=== PATIENT | female | born 2000 | race Caucasian/White ===

== ENCOUNTER 2019-02-16 09:15 | Emergency (ER) | payer MEDICAID ==
[~2019-02-16] VITALS: Ht 160 cm; Wt 66.8 kg
[~2019-02-16 09:15] MED LIST: LEVO25TA2 PO
[2019-02-16] MEDS ORDERED: ondansetron/PF 4mg/2ml inj IV ONE (11:15)
[2019-02-16] MEDS ORDERED: ketorolac tromethamine 15mg/ml inj. IV ONE (11:15)
[2019-02-16 11:37] LABS: BASOPHILS % (AUTO) 1.1 % (0-1); EOSINOPHILS # (AUTO) 0.1 X10'3 (0-0.9); EOSINOPHILS % (AUTO) 2.1 % (0-6); HEMATOCRIT 39.9 % (35.0-45.0); HEMOGLOBIN 13.8 g/dl (12.0-16.0); LYMPHOCYTES # (AUTO) 0.9 X10'3 (1.1-4.8); LYMPHOCYTES % (AUTO) 25.6 % (21-51); MEAN CORPUSCULAR HEMOGLOBIN 30.2 PG (27.0-31.0); MEAN CORPUSCULAR HGB CONC 34.5 g/dL (33.0-36.5); MEAN CORPUSCULAR VOLUME 87.4 FL (78-98); MEAN PLATELET VOLUME 7.9 FL (7.4-10.4); MONOCYTES # (AUTO) 0.5 X10'3 (0-0.9); MONOCYTES % (AUTO) 13.6 % (2-12); NEUTROPHILS # (AUTO) 2.1 X10'3 (1.8-7.7); NEUTROPHILS % (AUTO) 57.6 % (42-75); PLATELET COUNT 241 X10'3 (140-440); RED BLOOD COUNT 4.56 X10'6 (4.20-5.60); RED CELL DISTRIBUTION WIDTH 12.5 % (11.5-14.5); WHITE BLOOD COUNT 3.6 X10'3 (4.5-11.0)
[2019-02-16 11:38] LABS: URINE HCG NEGATIVE (NEG)
[2019-02-16 11:42] LABS: CLARITY,URINE SLIGHTLY CLOUDY (Clear); COLOR,URINE YELLOW (Yellow); GLUCOSE, URINE NEGATIVE (Neg); KETONES,URINE NEGATIVE (Neg); LEUKOCYTE ESTERASE ,URINE SMALL (Neg); NITRITES, URINE NEGATIVE (Neg); OCCULT BLOOD,URINE NEGATIVE (Neg); PROTEIN,URINE NEGATIVE (Neg); UROBILINOGEN,URINE 0.2 E.U/dL (0.2-1.0)
[2019-02-16 11:43] LABS: URINE AMPHETAMINE SCREEN NEGATIVE (Neg); URINE BARBITUATE SCREEN NEGATIVE (Neg); URINE BENZODIAZEPINES SCREEN NEGATIVE (Neg); URINE CANNABINOID SCREEN NEGATIVE (Neg); URINE COCAINE SCREEN NEGATIVE (Neg); URINE METHADONE SCREEN NEGATIVE (Neg); URINE OPIATE SCREEN NEGATIVE (Neg); URINE PHENCYCLIDINE SCREEN NEGATIVE (Neg)
[2019-02-16 11:47] LABS: UA COLLECTION TYPE CLN CATCH MIDSTREAM
[2019-02-16 11:48] LABS: BACTERIA,URINE 1+ /HPF (Neg); MUCUS STRANDS MODERATE /LPF (Neg); RBC,URINE NONE SEEN /HPF (0-2); SQUAMOUS EPITHELIAL CELL,UR MODERATE /LPF (FEW); WBC,URINE 30-50 /HPF (0-4)
[2019-02-16 11:50] LABS: ALANINE AMINOTRANSFERASE 23 U/L (12-78); ALBUMIN 4.2 G/DL (3.4-5.0); ALBUMIN/GLOBULIN RATIO 1.1 (1.1-1.5); ALKALINE PHOSPHATASE 76 IU/L (20-180); ANION GAP 10 (8-16); ASPARTATE AMINO TRANSFERASE 23 U/L (10-37); BILIRUBIN,TOTAL 0.3 MG/DL (0.1-1.0); BLOOD UREA NITROGEN 7 MG/DL (7-18); BUN/CREATININE RATIO 9.3 (6.6-38.0); CALCIUM 8.8 MG/DL (8.5-10.1); CHLORIDE 107 MMOL/L (99-107); CREATININE 0.75 MG/DL (0.40-0.90); GLUCOSE 89 MG/DL (70-104); LIPASE 99 U/L (73-393); POTASSIUM 3.7 MMOL/L (3.5-5.1); SODIUM 144 MMOL/L (135-145); TOTAL CARBON DIOXIDE 27.4 MMOL/L (24-32); eGFR > 90 ML/MIN
[2019-02-16] MEDS ORDERED: NITR100C6 PO (11:57)
[2019-02-16 12:15] VITALS: BP 102/64
== END 2019-02-16 12:21 | disposition home or self-care (01) ==
LOC: ER 09:15
DX: N39.0 Urinary tract infection, site not specified (principal); E03.9 Hypothyroidism, unspecified; R19.7 Diarrhea, unspecified; Z79.899 Other long term (current) drug therapy
CPT/HCPCS: 36415; 80053; 80305; 81001; 81025; 83690; 85025; 85610; 87088; 96374; 96375; 99283; J1885; J2405

== ENCOUNTER 2019-09-29 15:30 | Emergency (ER) | payer MEDICAID ==
[~2019-09-29] VITALS: Ht 160 cm; Wt 70.0 kg
[~2019-09-29 15:30] MED LIST changes: +NITR100C6 PO
[2019-09-29 15:38] VITALS: BP 130/75
[2019-09-29] MEDS ORDERED: orphenadrine citrate 60mg/2ml inj. IM ONE (16:15)
[2019-09-29] MEDS ORDERED: ketorolac tromethamine 15mg/ml inj. IM ONE (16:15)
[2019-09-29] MEDS ORDERED: IBUP-1985 PO (17:35)
[2019-09-29] MEDS ORDERED: METH-360 PO (17:35)
== END 2019-09-29 18:01 | disposition home or self-care (01) ==
LOC: ER 15:31
DX: S30.0XXA Contusion of lower back and pelvis, initial encounter (principal); E03.9 Hypothyroidism, unspecified; Z79.899 Other long term (current) drug therapy; W18.39XA Other fall on same level, initial encounter; Y93.89 Activity, other specified; Y92.89 Other specified places as the place of occurrence of the external cause; Y99.8 Other external cause status
CPT/HCPCS: 72170; 96372; 99284; J1885; J2360

== ENCOUNTER 2024-11-21 09:20 | Emergency (ER) | payer MEDICAID ==
[~2024-11-21] VITALS: Ht 160 cm; Wt 83.9 kg
[~2024-11-21 09:20] MED LIST changes: +IBUP-1985 PO; +METH-360 PO
--- NOTE | 2024-11-21 09:37 | Physician Documentation ---
History of Present Illness Stated Complaint: LOWER ABDOMINAL PAIN OK to notify your PCP?: Yes Primary Medical Doctor: KAMALA Source: patient Mode of Arrival: POV Exam Limitations: no limitations HPI 23-year-old female presents with right lower quadrant pain for the past week and a half. She states that the pain has been getting progressively worse and it feels like a sharp pain constantly. She says if she moves certain directions then it feels like a sharp stabbing sensation. She also has had some nausea and diarrhea. She still has her appendix. She denies any fevers. She has no vaginal bleeding or cramping, she did have Nexplanon put in in July of this year, menstrual cycle was in September of this year. She has a history of ovarian cyst but has not never experienced pain from them before. MD History: Comes in for evaluation of abdominal pain. She reports it has been going on for a week and a half or two weeks, relatively constant although it waxes and wanes. 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 She has felt slightly nauseated and has had loose stools once per day, no vomiting, fever, dysuria, or hematuria noted. Patient gave about 4-1/2 months ago and is nursing, has never had these symptoms before . Medication Reconciliation Allergies: Coded Allergies: No Known Allergies (Unverified , 07/29/16) Scheduled Ibuprofen (Ibuprofen), 1 TAB PO Q8H Methocarbamol (Robaxin-750), 1 TAB PO Q12H Nitrofurantoin Monohyd/M-Cryst (Macrobid 100 mg Capsule), 1 CAP PO Q12H Pantoprazole Sodium (PROTONIX tablet), 1 TAB PO DAILY levothyroxine sodium* (Synthroid*), 1 TAB PO DAILY, (Reported) Past Medical History Past Medical History: *GI/HEPATOBILIARY* (Irritable bowel syndrome), Hypothyroidism Past Surgical History: noncontributory Smoking Status: Current every day smoker Alcohol Use: None Drug Use: none Lives with: Family Lives In: Home Occupation: student Review of Systems All Other Systems at this time: Reviewed and Negative Physical Exam Vital Signs: RN Vital Signs have been reviewed: Yes Pulse Oximetry Reflects: adequate oxygenation Physical Exam General: Pt is awake, alert, oriented x4 in no acute distress and well appeari ng. Head: Normocephalic and atraumatic. Eyes: Conjunctiva normal. ENT: Mucous membranes moist. Neck: Supple. Chest: Clear to auscultation bilaterally, without rales, rhonchi, or wheezes. There is no accessory muscle use or retractions. Cardiac: Regular rate and rhythm without murmurs, gallops or rubs. Palpation of the chest wall is normal. Abd: Soft, nondistended, tender predominantly over the RUQ, less so over RMQ/RLQ, with normoactive bowel sounds. No guarding or rebound found. Extremities: Within normal limits without cyanosis, clubbing, or edema. Skin: Vergas, warm and dry with no significant rash appreciated. Neuro: Cranial nerves II-XII grossly intact. The gait is normal. Medical Decision Making Additional Comments Patient presenting with mid quadrant right abdominal pain going on for the last several days. As the tenderness seems to be predominantly towards the right upper quadrant it was felt that she might have biliary obstruction or biliary colic. Because the tenderness also was in the right lower quadrant and after noting normal bilirubin and liver function tests, I elected to perform a CT scan to also rule out appendicitis. No acute pathology was found. Patient's symptoms are likely related either to uncomplicated biliary colic or a gastroesophageal etiology; she has been advised to eat small low-fat meals as well as to start taking a proton pump inhibitor. She should have close follow- up with her PMD who can continue the outpatient workup, but understands that she should return immediately for any worsening of her symptoms or other concerns. Departure Time of Disposition: 14:53 Disposition: 01 HOME / SELF CARE / HOMELESS Impression: Primary Impression: Nonspecific abdominal pain Condition: Stable Discharge Instructions: Abdominal Pain (Nonspecific) Additional Instructions: No specific cause for your pain was found today on your screening tests in the emergency department. You are being started on a new medication for your stomach, however you will need to follow up with your regular provider for further outpatient workup. Please take small, lower fat meals in case you may have some small gallstones causing pain. Take the medication you are prescribed, know that you should return immediately to the emergency department should she develop increasing pain, fever, passing blood, or any other concerns. Referrals: NO PRIMARY CARE PROVIDER (PCP) Prescriptions Pantoprazole Sodium (PROTONIX tablet) 40 Mg Tablet. 1 TAB PO DAILY for 30 Days, #30 TAB 0 Refills Prov: FAIZAN GARNICA MD 11/21/24 Education Educated: Patient, Family Educated regarding: diagnosis, treatment Additional Comment Medical Screen Exam This patient recieved a medical screening examination. After reviewing the individual's medical complaints with presenting symptoms and performing an appropriate physical examination, it was determined that no immediate life- threatening emergency medical condition is present. This individual is also not a women having contractions. Signature Scribe Signature: Attestation: LAMAR WOODWARDP Nov 21, 2024 09:37 FAIZAN GARNICA MD Nov 21, 2024 12:03
[2024-11-21 10:41] LABS: MEAN PLATELET VOLUME 7.8 FL (7.4-10.4); RED CELL DISTRIBUTION WIDTH 13.5 % (11.5-14.5)
[2024-11-21 10:55] LABS: CREATININE 0.64 MG/DL (0.40-0.90); TOTAL CARBON DIOXIDE 27.6 MMOL/L (24-32); eCRCL 111 ML/MIN; eGFR > 90 ML/MIN
[2024-11-21 11:11] LABS: LEUKOCYTE ESTERASE ,URINE NEGATIVE (Neg); NITRITES, URINE NEGATIVE (Neg); OCCULT BLOOD,URINE NEGATIVE (Neg)
[2024-11-21 11:12] LABS: URINE HCG NEGATIVE (NEG)
[2024-11-21 11:14] LABS: UA COLLECTION TYPE NON-SPECIFIED
[2024-11-21] MEDS ORDERED: iohexol 300mg/ml 100ml inj. ONE (12:37)
--- NOTE | 2024-11-21 13:52 | RADIOLOGY REPORT ---
Exam: CT CT ABDOMEN PELVIS W/ IV CONTRAST History: r/o appy Comparison Study: None Technique: Multidetector spiral CT of the abdomen was performed from lung bases to pubic symphysis. A xial imaging was performed with intravenous contrast following the uneventful administration of 100 m l Omnipaque 300. Coronal and sagittal multiplanar reformats were obtained from the axial data set by the technologist. Radiation Dose : 1. Abdomen/Pelvis: CTDIvol 21.5 mGy, DLP 1131.96 mGy*cm. Findings: Lung Bases: Lung bases are clear. Visualized portions of the heart and pericardium are unremarkable. Liver: The liver is normal in size. No focal lesions. Gallbladder and Biliary Tree: The gallbladder is unremarkable. No intrahepatic or extrahepatic bilia ry ductal dilatation. Spleen: Unremarkable Pancreas: The pancreas enhances normally and there are no focal lesions. The main pancreatic duct is not dilated Adrenal Glands: Unremarkable Kidneys: Kidneys enhance symmetrically. No calculi or hydronephrosis. GI tract: The stomach is grossly normal in appearance. No evidence of small bowel wall thickening or abnormal dilatation to suggest bowel obstruction. The colon is unremarkable. The appendix is visualiz ed and is normal. Peritoneum/mesentery/retroperitoneum. No evidence of free intraperitoneal air. No ascites. No evidenc e of suspicious lymphadenopathy. Abdominal Wall: Unremarkable. Vasculature: Abdominal aorta and main branches are unremarkable. Normal vascular enhancement. Urinary Bladder: Grossly unremarkable for degree of distention. Pelvic Organs: Possible uterus didelphys versus septated uterus. Left adnexal dominant follicle. Musculoskeletal: No aggressive focal bony lesions, acute fractures or dislocation. IMPRESSION: 1. No acute abdominal or pelvic findings. 2. Normal appendix.
[2024-11-21] MEDS ORDERED: PANT-47 PO (14:55)
[2024-11-21 15:05] VITALS: BP 121/74; PULSE 84; RESP 18; TEMP 98.5; O2SAT 97
== END 2024-11-21 15:00 | disposition home or self-care (01) ==
LOC: ER 09:21
DX: R10.31 Right lower quadrant pain (principal); R19.7 Diarrhea, unspecified; R11.0 Nausea; E03.9 Hypothyroidism, unspecified; F17.200 Nicotine dependence, unspecified, uncomplicated
CPT/HCPCS: 36415; 74177; 80053; 81003; 81025; 83690; 85025; 99285; Q9967